=== PATIENT | female | born 2000 | race Hispanic/Latino ===

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

== ENCOUNTER → 2020-01-23 | Outpatient (REF) | payer OTHER ==
[~2020-01-23] MED LIST changes: +IBUP200C33 PO
== END ==
LOC: M LAB REF 14:26
PROVIDERS: ATTEND Dermatology
DX: R21 Rash and other nonspecific skin eruption (principal)

== ENCOUNTER 2020-04-11 04:12 | Inpatient (IN) | payer OTHER ==
[2020-04-11] VITALS (30 sets, daily range): BP systolic 83–121; BP diastolic 52–76
[~2020-04-11] VITALS: Ht 152.4 cm; Wt 56.0 kg
[2020-04-11] MEDS ORDERED: FERR325T82 PO (04:31)
--- NOTE | 2020-04-11 05:20 | IPNPDOC ---
Text Note Date of Service The patient was seen on 04/11/20. NOTE 04/11/20 0500 am 19 yo AT 40 WEEKS RUTH SINCE 0500 AM 04/10/2020 NO SHOW NO BLEEDING . NO SROM. GBS NEGATIVE . PAST HX 03/2017 38 WEEKS FEMALE 7 LBS 07/26/2018 WEEKS 8 LBS 12 OZ FEMALE PHYSICAL NOT APPEARING IN DISTRES CATAGORY 1 STRIP CONTRACTIONS SPACED Q 5-7 MONUTES MILD . PELVIC EXAM 100% EFFACED POSTERIOR 3 CM SOFT -2 STATION SIMILAR TO 1 WEEK AGO. PLAN OF CARE HYDRATE REEVALUATE 2 HOURS VS,Fishbone, I+O VS, Fishbone, I+O Vital Signs Date Time Temp Pulse Resp B/P (MAP) Pulse Ox O2 Delivery O2 Flow Rate FiO2 04/11/20 04:38 98.4 96 16 108/73 (85) Conor Herrera MD Apr 11, 2020 05:20
[2020-04-11] MEDS ORDERED: LR 1,000 ML IV ONE (05:30)
[2020-04-11] MEDS ORDERED: LR 1,000 ML IV SCH ×2 (06:30→06:58)
[2020-04-11] MEDS ORDERED: LACTATED RINGER'S 1000 ML IV ONE (07:00)
[2020-04-11 07:23] LABS: HEMOGLOBIN 11.7 g/dl (12.0-15.5); MEAN CORPUSCULAR HEMOGLOBIN 28.5 pg (27.0-33.0); MEAN CORPUSCULAR HGB CONC 32.5 g/dl (32.0-36.5); MEAN CORPUSCULAR VOLUME 87.6 fl (80.0-96.0); PLATELET COUNT, AUTOMATED 309 10^3/uL (150-450); RED BLOOD COUNT 4.11 10^6/uL (4.00-5.40); WHITE BLOOD COUNT 13.2 10^3/uL (4.0-10.0)
[2020-04-11] MEDS ORDERED: FENTANYL 2MCG/ML ROPIVACAINE 0.2% IN 0.9% NACL 100ML IVBAG As Ordered ONE (07:40)
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
[2020-04-11] MEDS ORDERED: ONDANSETRON 4MG/2ML VIAL IV PRN (08:20)
[2020-04-11] MEDS ORDERED: NALOXONE INJ 0.4MG/1ML VIAL (J2310 PER 1MG) IV PRN (08:20)
[2020-04-11] MEDS ORDERED: LACTATED RINGER'S 1000 ML IV PRN (08:20)
[2020-04-11] MEDS ORDERED: FENTANYL/ROPIVACAINE/NACL BAG 100 ML EPIDURAL SCH (08:20)
[2020-04-11] MEDS ORDERED: diphenhydrAMINE 50MG/ML VIAL (J1200) IV PRN (08:20)
[2020-04-11] MEDS ORDERED: REFRIGERATOR IV KEYS XX PRN (08:20)
[2020-04-11] MEDS ORDERED: EPIDURAL/PCA KEYS XX PRN (08:20)
[2020-04-11] MEDS ORDERED: EPIDURAL COMMENT XX SCH (08:20)
[2020-04-11] MEDS ORDERED: OXYTOCIN 30 UNITS IN 0.9% NaCl 500ML IV BAG (J2590) As Ordered ONE (09:15)
--- NOTE | 2020-04-11 09:24 | IPNPDOC ---
Obstetrical Progress Note Date of Service Apr 11, 2020 Subjective Pt states feeling comfortable after epidural anesthesia Objective Vital Signs Date Time Temp Pulse Resp B/P (MAP) Pulse Ox O2 Delivery O2 Flow Rate FiO2 04/11/20 09:06 74 18 106/62 (77) 04/11/20 08:29 97.6 Assessment Heart Rate (FHR): 120 Variability: Moderate Accelerations: Positive Decelerations: None Heart Rate Tracing: Category I Tocometer Contractions: Yes Frequency: every 3-7 min. Duration: greater than 60 seconds Strength: palpated as strong, resting tone palp/soft Sterile Vaginal Examination Dilation: 7 cm Effacement (%): 100% Station: -1 Cervical Consistency: Soft Cervical Position: Posterior Postion/Presentation: Cephalic presentation Assessment and Plan Age: 19 : 3 Term: 2 Pre-term: 0 Abortions: 0 Livin EGA at Admission: 40 Status: Reassuring Group B Streptococcus: Negative Anticipate: Vaginal Delivery Additional Comments Reviewed counseling for augmentation of labor. Reviewed AROM and Pitocin augmentation if needed. Cervical exam 7/90/-1, BBOW, posterior cervix. AROM clear with exam. Contractions increased to q4-5 within several minutes of AROM. 15 min after AROM, FHR deceleration was noted to 89. Pt repositioned to left lateral. The go bulb was noted in front of the head and repositioned. Cervical exam 8/100/-1, fhr recovered with repositioning and scalp stimulation. Pt positioned with peanut ball. Lr@125 ml/hr, continuous efm x2, epidural anesthesia, monitor for change in or maternal status, anticipate vaginal delivery DRISS JUNIOR CNM Apr 11, 2020 09:24
[2020-04-11] MEDS: ePHEDrine SULFATE 25 MG/5 ML(5MG/ML) SYRINGE IV PRN ×3 (09:39→09:56)
[2020-04-11] MEDS ORDERED: OXYTOCIN DRIP 30 UNITS in IV 1 EA IV SCH ×2 (09:50→10:58)
[2020-04-11] MEDS ORDERED: MEASLES,MUMPS,RUBELLA VACCINE INJ (MMR-II) (90707) SC SCH (11:00)
[2020-04-11] MEDS ORDERED: DOCUSATE SODIUM 100MG CAPSULE PO PRN (11:00)
[2020-04-11] MEDS ORDERED: DIBUCAINE 1% OINTMENT 30GM TOP PRN (11:00)
[2020-04-11] MEDS ORDERED: ACETAMINOPHEN TAB 650MG DOSE (2X325MG) PO PRN (11:00)
[2020-04-11] MEDS ORDERED: METHYLERGONOVINE MALEATE 0.2 MG TAB PO PRN (11:00)
[2020-04-11] MEDS ORDERED: RHOGAM 300 MCG (1500 IU) INJ (J2790) IM SCH (11:00)
--- NOTE | 2020-04-11 11:30 | DNPDOC ---
[facility] Delivery Note Delivery Note DATE OF DELIVERY: 11Apr2020 PREDELIVERY DIAGNOSIS: 40-0/7 weeks' gestation and labor. POST DELIVERY DIAGNOSIS: Delivered. PROCEDURE: Spontaneous vaginal delivery. ADMINISTRATIVE SUPPORT MANAGER:Rehana Junior CNM ANESTHESIA: epidural. ESTIMATED BLOOD LOSS: 100 mL. FINDINGS: 7 pound 9 ounce Male Luiz, Score 9/9, shoulder and right arm cord. DELIVERY SUMMARY: Patient is a 19-year-old 3 now para 3 who was admitted to labor and delivery for labor at 40+0. Tejal called out with complaint of pressure and was found to be C/C/+2. Brisk decent occurred with maternal pushing efforts to over an intact perineum in OA with restitution to DON. No nuchal cord was noted after delivery of the head. The right anterior shoulder delivered easily followed by the posterior shoulder. A shoulder and r ight arm cord were noted, the arm cord reduced and the delivered through the shoulder cord. The male was placed immediately skin to skin on the maternal abdomen where he was dried and stimulated for a vigorous cry. The Pitocin infusion was initiated per protocol. The placenta delivered spontaneously in Multani presentation with minimal bleeding. The fundus firmed immediately. The cervix was swept with no clots noted. Mother and baby entered the recovery phase in stable condition. REHANA JUNIOR CNM Apr 11, 2020 11:30
[2020-04-11] MEDS ORDERED: SLF 3 ML SYR IV PRN (12:15)
[2020-04-11] MEDS: IBUPROFEN 800 MG TAB PO PRN (17:51)
[2020-04-11] MEDS: SLF 3 ML SYR IV SCH ×2 (18:16→22:15)
[2020-04-12] MEDS: SLF 3 ML SYR IV SCH ×2 (05:42→14:00)
[2020-04-12] MEDS: IBUPROFEN 800 MG TAB PO PRN (05:42)
[2020-04-12 06:00] VITALS: BP 102/59
--- NOTE | 2020-04-12 08:55 | OBDS ---
[facility] Obstetrical Discharge Sum. Obstetrical Discharge Summary Date: Apr 12, 2020 : 3 Term: 3 Pre-term: 0 Abortions: 0 Livin VDRL: Non-Reactive Rh: Positive Rubella: Immune Labor spontaneous labor at term Delivery Infant Sex: Male Weight: pounds (7), ounces (3) Anesthesia: Regional Anesthesia Episiotomy no laceration A/P, Post Course List any complications Admission diagnosis: active labor at term. Discharge diagnosis: stable 24 hrs pp Condition at Discharge: stable Discharge Instructions: Home Activity: ad noemi Diet: regular Medications: at [place] Follow-up: 2 wk virtual with control counseling Other: DRISS JUNIOR CNM Apr 12, 2020 08:55
[2020-04-12] MEDS ORDERED: PRENATAL VITAMINS CHEWABLE TABLET PO SCH (09:00)
[2020-04-12] MEDS ORDERED: IBUP80TA PO (09:46)
[2020-04-12] MEDS ORDERED: ACET1TAB55 PO (09:46)
[2020-04-12 18:00] VITALS: BP 126/77
== END 2020-04-12 19:00 | disposition home or self-care (01) | DRG 807 ==
LOC: M LDO 04:12 → M LDI 06:58 → M OBS 12:45
PROVIDERS: ADMIT Obstetrics & Gynecology; ATTEND Registered Nurse
PROC: 10E0XZZ Delivery of Products of Conception, External Approach (ICD-10-PCS; principal; 2020-04-11)
PROC: 10907ZC Drainage of Amniotic Fluid, Therapeutic from Products of Conception, Via Natural or Artificial Opening (ICD-10-PCS; 2020-04-11)
DX: O80 Encounter for full-term uncomplicated delivery (principal); Z37.0 Single live birth; Z3A.40 40 weeks gestation of pregnancy